=== PATIENT | male | born 1950 | race Caucasian/White ===

== ENCOUNTER 2018-08-04 05:36 | Day surgery (SDC) | payer MEDICARE ==
[2018-08-04] MEDS ORDERED: PROPARACAINE 0.5% OPHTH SOL 15 ML BTTL ONE (08:35)
[2018-08-04] MEDS ORDERED: TROP 1%/CYCLOPEN 1%/PHENYL 2% DROPS ONE (08:35)
[2018-08-04] MEDS ORDERED: MIDAZOLAM INJ 2 MG/2 ML VIAL ONE (11:11)
[2018-08-04] MEDS ORDERED: DEXAMETHASONE 0.1% OPHTH SOL 1 DROP RIGHT_EYE ONE ×2 (11:27→11:35)
[2018-08-04] MEDS ORDERED: LIDOCAINE 1% MPF 5 ML VIAL INJ ONE (11:27)
[2018-08-04] MEDS ORDERED: TOBRAMYCIN SULF 0.3 % OPHT SOL 1 DROP RIGHT_EYE ONE ×2 (11:28→11:35)
[2018-08-04] MEDS ORDERED: BRIMONIDINE 0.2% OPHTH DROPS RIGHT_EYE ONE ×2 (11:28→11:35)
== END 2018-08-04 12:10 | disposition home or self-care (01) ==
LOC: AMB 05:36
PROVIDERS: ATTEND Ophthalmology
DX: H25.11 Age-related nuclear cataract, right eye (principal); I10 Essential (primary) hypertension; E66.9 Obesity, unspecified; J44.9 Chronic obstructive pulmonary disease, unspecified; F17.290 Nicotine dependence, other tobacco product, uncomplicated; Z79.899 Other long term (current) drug therapy
CPT/HCPCS: 00142; 66984; J2250

== ENCOUNTER → 2018-08-04 | Outpatient (CLI) | payer MEDICARE | LOC: LAB.O 09:20 | PROVIDERS: ATTEND Family Medicine | DX: Z00.00 Encounter for general adult medical examination without abnormal findings (principal); Z13.220 Encounter for screening for lipoid disorders; Z13.1 Encounter for screening for diabetes mellitus ==

== ENCOUNTER 2018-09-01 05:36 | Day surgery (SDC) | payer MEDICARE ==
[2018-09-01] MEDS ORDERED: PROPARACAINE 0.5% OPHTH SOL 15 ML BTTL ONE (05:50)
[2018-09-01] MEDS ORDERED: TROP 1%/CYCLOPEN 1%/PHENYL 2% DROPS ONE (05:50)
[2018-09-01] MEDS ORDERED: MIDAZOLAM INJ 2 MG/2 ML VIAL ONE (06:43)
[2018-09-01] MEDS ORDERED: LIDOCAINE 1% MPF 5 ML VIAL INJ ONE ×2 (09:31→09:39)
[2018-09-01] MEDS ORDERED: DEXAMETHASONE 0.1% OPHTH SOL 1 DROP LEFT_EYE ONE ×2 (09:31→09:55)
[2018-09-01] MEDS ORDERED: BRIMONIDINE 0.2% OPHTH DROPS LEFT_EYE ONE ×2 (09:32→09:55)
[2018-09-01] MEDS ORDERED: TOBRAMYCIN SULF 0.3 % OPHT SOL 1 DROP LEFT_EYE ONE ×2 (09:32→09:55)
== END 2018-09-01 10:43 | disposition home or self-care (01) ==
LOC: AMB 05:36
PROVIDERS: ATTEND Ophthalmology
DX: H25.9 Unspecified age-related cataract (principal); I10 Essential (primary) hypertension; E66.9 Obesity, unspecified; F17.290 Nicotine dependence, other tobacco product, uncomplicated; Z79.899 Other long term (current) drug therapy
CPT/HCPCS: 00142; 66984; J2250

== ENCOUNTER → 2018-11-13 | Outpatient (CLI) | payer MEDICARE | LOC: RESP 10:06 | PROVIDERS: ATTEND Emergency Medicine | DX: Z01.818 Encounter for other preprocedural examination (principal) ==

== ENCOUNTER 2019-11-09 22:56 | Emergency (ER) | payer MEDICARE ==
[2019-11-09] MEDS ORDERED: ACETAMINOPHEN 500 MG TAB PO ONE (23:25)
[2019-11-09] MEDS ORDERED: TETANUS,DIPHTHERIA,PERTUSSIS 1 EA SYG IM ONE (23:25)
--- NOTE | 2019-11-09 23:31 | ED.PDOC ---
History of Present Illness - General Chief Complaint: Bite: Animal/Insect/Human Stated Complaint: dog bite to RFA, occurred around 1730 Time Seen by Provider: 11/09/19 23:19 - History of Present Illness Initial Comments: 69 yo F PMH HTN presents to ED Police and Daughter at bedside after being bitten during tussle between her 2 vaccinated dogs at home 5 hours ago. Denies head injury LOC declines rabies vaccination. Denies fever chills nausea vomiting diarrhea chest pain sob diaphoresis. No change in diet rest bowel or bladder. Has PMD for follow up admits drinking and smoking admits FH HTN denies FH DM no other c/o today. Allergies/Adverse Reactions: Allergies NO KNOWN ALLERGY Allergy (Verified 08/04/18 13:28) Home Medications: Ambulatory Orders Ibuprofen 600 mg PO Q6H PRN #20 tab 11/09/19 Lisinopril 40 mg PO DAILY 11/09/19 Acetaminophen [Tylenol] 650 mg PO Q6H PRN #30 tab 11/10/19 Clindamycin HCl [Cleocin] 300 mg PO Q6H 10 Days #80 cap 11/10/19 Review of Systems - Review of Systems Constitutional: States: see HPI EENTM: States: see HPI Respiratory: States: see HPI Cardiology: States: see HPI Gastrointestinal/Abdominal: States: see HPI Genitourinary: States: see HPI Musculoskeletal: States: see HPI Skin: States: see HPI Neurological: States: see HPI Endocrine: States: see HPI Hematologic/Lymphatic: States: see HPI All other Systems: Reviewed and Negative Past Medical History (General) - Patient Medical History Hx Hypertension: Yes Hx Diabetes: No Hx MRSA: No - Vaccination History Hx Tetanus, Diphtheria Vaccination: No Family Medical History - Family History Mother Family History: Unknown Physical Exam - Physical Exam General Appearance: No apparent distress Eye Exam: bilateral normal Ears, Nose, Throat: normal ENT inspection Neck: non-tender, full range of motion Respiratory: normal breath sounds, no respiratory distress Cardiovascular/Chest: regular rate, rhythm Gastrointestinal/Abdominal: non tender, soft Rectal Exam: deferred Back Exam: normal inspection Extremity: other - 2 linear superficial lacerations right forearm Neurologic: no motor/sensory deficits Progress - Progress Progress: 11/09/19 23:32 A/P-Dog Bite-declines rabies vaccination tylenol tetanus XR right forearm wound care bacitracin pressure dressing then d/c tylenol ibuprofen clindamycin follow up pcp 11/09/19 23:58 EXAM DESCRIPTION: XR Forearm, Right CLINICAL HISTORY: dog bite TECHNIQUE: Two views of the right forearm are submitted. COMPARISON: None available for comparison FINDINGS: Bones: No acute fracture. Joints: No dislocation. Moderate degenerative changes at the radiocarpal and 1st carpometacarpal articulations. Soft tissues: Soft tissue injury along the radial aspect of the arm at the proximal to mid diaphyseal level. IMPRESSION: Soft tissue injury along the radial aspect of the arm at the proximal to mid diaphyseal level. No acute fracture. Electronically signed by: Thomas Echavarria MD 11/09/2019 11:47 PM [facility] [employer] Departure - Departure Clinical Impression: Laceration Dog bite Qualifiers: Encounter type: initial encounter Qualified Code(s): W54.0XXA - Bitten by dog, initial encounter Arm pain Qualifiers: Laterality: right Qualified Code(s): M79.601 - Pain in right arm Time of Disposition: 23:59 Disposition: Discharge to Home or Self Care Condition: Good Departure Forms: ED Discharge - Pt. Copy, Patient Portal Self Enrollment Instructions: DI for Animal Bites Referrals: Dariana Paz DO [Primary Care Provider] - 1-2 Days Prescriptions: Acetaminophen [Tylenol] 650 mg PO Q6H PRN #30 tab PRN Reason: Pain Clindamycin HCl [Cleocin] 300 mg PO Q6H 10 Days #80 cap Ibuprofen 600 mg PO Q6H PRN #20 tab PRN Reason: Pain Home Medications: Ambulatory Orders Ibuprofen 600 mg PO Q6H PRN #20 tab 11/09/19 Lisinopril 40 mg PO DAILY 11/09/19 Acetaminophen [Tylenol] 650 mg PO Q6H PRN #30 tab 11/10/19 Clindamycin HCl [Cleocin] 300 mg PO Q6H 10 Days #80 cap 11/10/19
[2019-11-09] MEDS ORDERED: BACITRACIN 0.9 GM UD PCKT TOP ONE (23:34)
[2019-11-09] MEDS ORDERED: CHLORHEXIDINE GLUCONATE 4 % 15 ML UD TOP ONE (23:36)
--- NOTE | 2019-11-09 23:49 | RAD ---
EXAM DESCRIPTION: XR Forearm, Right CLINICAL HISTORY: dog bite TECHNIQUE: Two views of the right forearm are submitted. COMPARISON: None available for comparison FINDINGS: Bones: No acute fracture. Joints: No dislocation. Moderate degenerative changes at the radiocarpal and 1st carpometacarpal articulations. Soft tissues: Soft tissue injury along the radial aspect of the arm at the proximal to mid diaphyseal level. IMPRESSION: Soft tissue injury along the radial aspect of the arm at the proximal to mid diaphyseal level. No acute fracture. Electronically signed by: Thomas Echavarria MD 11/09/2019 11:47 PM [facility]
[2019-11-10 00:20] VITALS: BP 199/115; TEMP 98.8; O2SAT 97
== END 2019-11-10 00:19 | disposition home or self-care (01) ==
LOC: ER 22:56 → EDSEX 22:56 → ER 11-10 00:19
DX: S51.851A Open bite of right forearm, initial encounter (principal); I10 Essential (primary) hypertension; F17.200 Nicotine dependence, unspecified, uncomplicated; W54.0XXA Bitten by dog, initial encounter; Z79.899 Other long term (current) drug therapy; Y92.9 Unspecified place or not applicable
CPT/HCPCS: 73090; 90471; 90715; J3490